=== PATIENT | female | born 1970 | race Caucasian/White ===

== ENCOUNTER 2018-01-03 08:05 | Day surgery (SDC) | payer OTHER ==
[2017-12-27 17:16] VITALS: BMI 40.5
[2018-01-03] MEDS ORDERED: LIDOCAINE HCL 2% (20ML MULTI-DOSE VIAL) NR ONE (08:46)
[2018-01-03] MEDS ORDERED: PROPOFOL 20 ML ONE ×2 (09:08)
[2018-01-03] MEDS ORDERED: MIDAZOLAM HCL 2 MG/2 ML SINGLE DOSE VIAL ONE (09:09)
[2018-01-03] MEDS ORDERED: LIDOCAINE HCL 2% (50ML VIAL) INF ONE (10:18)
[2018-01-03] MEDS ORDERED: DEXAMETHASONE SOD PHOSPHATE 4 MG/1 ML VIAL ONE (10:22)
[2018-01-03] MEDS ORDERED: ONDANSETRON 4 MG/2 ML VIAL ONE (10:22)
[2018-01-03] MEDS ORDERED: KETOROLAC TROMETHAMINE 30 MG/1 ML VIAL ONE (10:22)
[2018-01-03] MEDS ORDERED: ONDANSETRON 4 MG/2 ML VIAL IVPUSH PRN (10:40)
[2018-01-03] MEDS ORDERED: PROMETHAZINE HCL 25 MG/1 ML VIAL IVPUSH PRN (10:40)
[2018-01-03] MEDS ORDERED: oxyCODONE HCL 5 MG TABLET PO PRN ×2 (10:40)
[2018-01-03 11:23] VITALS: TEMP 98.1
--- NOTE | 2018-01-03 11:37 | OP ---
DATE OF OPERATION: 01/03/2018 SURGEON: Jan Cat MD PREOPERATIVE DIAGNOSIS: Left carpal tunnel syndrome. POSTOPERATIVE DIAGNOSIS: Left carpal tunnel syndrome. OPERATIVE PROCEDURE: Left carpal tunnel release. ANESTHESIA: Local with sedation. COMPLICATIONS: None. ESTIMATED BLOOD LOSS: Minimal. INDICATIONS FOR PROCEDURE: The patient is a 47-year-old female with the above findings, indicated for operative treatment. The risks, benefits, and alternatives were discussed with the patient at length. Proper informed consent was obtained. PROCEDURE: After proper identification of the patient and the correct operative site, the patient was brought to the operating room and placed on the table with prominences well padded. Sedation and local anesthesia were given. Left upper extremity was prepped and draped in the usual sterile fashion. Well-padded tourniquet was placed with a sterile prep. Esmarch bandage used to exsanguinate the left upper extremity. Tourniquet inflated to 250 mmHg. A longitudinal incision was made in the proximal aspect of the palm. Incision was taken sharply through the skin with blunt and sharp dissection through subcutaneous tissues. Palmar fascia was divided longitudinally. The transverse carpal ligament was divided longitudinally along with the distal 4 cm of antebrachial fascia under direct visualization with loupe magnification. This provided complete release of the median nerve at the wrist. Wound was irrigated with saline and repaired with 5-0 nylon suture. Sterile dressings were applied. The patient was reversed from anesthesia and brought to the recovery room in stable condition. She tolerated the procedure well. JAN CAT M.D. [id number]
[2018-01-03 11:44] VITALS: BP 134/78; PULSE 59
== END 2018-01-03 11:45 | disposition home or self-care (01) ==
LOC: FASU 08:05
PROVIDERS: ATTEND Orthopaedic Surgery Hand Surgery
PROC: 01N50ZZ Release Median Nerve, Open Approach (ICD-10-PCS; principal; 2018-01-03 10:30)
DX: G56.02 Carpal tunnel syndrome, left upper limb (principal)
CPT/HCPCS: 84703; 94760